=== PATIENT | female | born 1940 | race Caucasian/White ===

== ENCOUNTER 2017-12-28 15:43 | Emergency (ER) | payer MEDICARE ==
--- NOTE | 2017-12-28 16:07 | EKG ---
[address] [address] Test Date: 2017-12-28 Test Time: 16:02:57 Pat Name: JAYLENE CLEMENT Department: Room: Gender: F [employer]: : 1940 Requested By: KALLI MCCABE Order Number: [id number] Reading MD: Measurements Intervals [place] Rate: 98 P: NE: QRS: 48 QRSD: 76 T: -5 QT: 284 QTc: 364 Interpretive Statements IRREGULAR RHYTHM, NO P-WAVE FOUND NO SPECIFIC ECG ABNORMALITIES RI6.01 No previous ECG available for comparison
[2017-12-28] MEDS ORDERED: METOPROLOL TARTRATE 5 MG/5 ML VIAL. IV ONE (16:15)
--- NOTE | 2017-12-28 16:19 | PHYS DOC ---
Past History Past Medical History: A-Fib, CAD, Hypertension Smoking: Non-smoker Adult General Chief Complaint Chief Complaint: SHORTNESS OF BREATH HPI HPI 77-year-old female patient with history of atrial fibrillation on Plavix and aspirin and Eliquis history of coronary artery disease with a stent placement on October 2017 complaining of constant shortness of breath since yesterday with bilateral ankle swelling. Patient states she was working at her yard today and felt more shortness of breath without palpitation and chest pain. Patient comes and goes generalized weakness and dizziness without focal neuro deficit, fever and chills, nausea and vomiting, cough and congestion. Review of Systems Review of Systems Constitutional: Denies fever or chills [] Eyes: Denies change in visual acuity, redness, or eye pain [] HENT: Denies nasal congestion or sore throat [] Respiratory: Reports shortness of breath [] Cardiovascular: No additional information not addressed in HPI [] GI: Denies abdominal pain, nausea, vomiting, bloody stools or diarrhea [] : Denies dysuria or hematuria [] Musculoskeletal: Denies back pain or joint pain [] Integument: Denies rash or skin lesions [] Neurologic: Denies headache, focal weakness or sensory changes [] Endocrine: Denies polyuria or polydipsia [] All other systems were reviewed and found to be within normal limits, except as documented in this note. Current Medications Current Medications Current Medications Medications (Trade) Dose Ordered Sig/Cristiano Start Time Stop Time Status Last Admin Dose Admin Metoprolol Tartrate (Lopressor Vial) 5 mg 1X ONCE 12/28/17 16:15 12/28/17 16:16 UNV Physical Exam Physical Exam Constitutional: Well developed, well nourished, mild distress, non-toxic appearance. [] HENT: Normocephalic, atraumatic, bilateral external ears normal, oropharynx moist, no oral exudates, nose normal. [] Eyes: PERRLA, EOMI, conjunctiva normal, no discharge. [] Neck: Normal range of motion, no tenderness, supple, no stridor. [] Cardiovascular: Irregularly irregular heartbeat with tachycardia Lungs & Thorax: Bilateral breath sounds clear to auscultation [] Abdomen: Bowel sounds normal, soft, no tenderness, no masses, no pulsatile masses. [] Skin: Warm, dry, no erythema, no rash. [] Back: No tenderness, no CVA tenderness. [] Extremities: No tenderness, no cyanosis, no clubbing, ROM intact, 1+ bilateral ankle edema. [] Neurologic: Alert and oriented X 3, normal motor function, normal sensory function, no focal deficits noted. [] Psychologic: Affect normal, judgement normal, mood normal. [] EKG EKG EKG interpreted by me. EKG at 16 and O2 showed atrial fibrillation with rate of 98, otherwise nonspecific EKG abnormalities[] Radiology/Procedures Radiology/Procedures [] [address] [address] IMAGING REPORT Signed PATIENT: JAYLENE CLEMENT ACCOUNT: [id number] : 1940 LOCATION: ER AGE: 77 SEX: F EXAM STATUS: REG ER ORD. PHYSICIAN: KALLI MCCABE MD REASON: shortness of breath PROCEDURE: PORTABLE CHEST 1V Exam: AP portable chest History: Shortness of air. Comparison: None. Findings: Cardiac silhouette appears borderline in size given positioning. No pneumothorax is seen. There may be small bilateral pleural effusions. No large consolidation is appreciated. No convincing failure is seen. Impression: 1. Cardiac silhouette is borderline in size. 2. Question small bilateral pleural effusions. Electronically signed by: Anand Del Castillo MD (12/28/2017 4:52 PM) [facility] DICTATED AND SIGNED BY: ANAND DEL CASTILLO MD DATE: 12/28/17 9628 CC: KALLI MCCABE MD; PCP,NO ~ Course & Med Decision Making Course & Med Decision Making Pertinent Labs and Imaging studies reviewed. (See chart for details) Evaluation of patient in ER showed 77-year-old female patient with history of atrial flutter patient complaining of shortness of breath. Patient had atrial flutter patient with heart rate of 110s with stable blood pressure. Patient treated with 5 mg of IV metoprolol and heart rate decreased to 90s and patient felt better with her shortness of breath. Patient had a BNP of 6200. Patient treated with Lasix. Plan to admit the patient with diagnosis of atrial fibrillation with RVR and CHF. Dr. Gutierrez accepted admission at 1730. Dragon Disclaimer Dragon Disclaimer This electronic medical record was generated, in whole or in part, using a voice recognition dictation system. Departure Departure: Impression: Primary Impression: Atrial fibrillation with RVR Additional Impressions: CHF (congestive heart failure) Shortness of breath Disposition: ADMITTED INPATIENT (At 1730) Admitting Physician: Kelly Gutierrez Condition: IMPROVED Referrals: PCP,NO (PCP) Critical Care Time Critical care time was [50] minutes exclusive of procedures. Problem Qualifiers KALLI MCCABE MD December 28, 2017 16:19
[2017-12-28 16:20] LABS: BASO # 0.1 x10^3/uL (0.0-0.2); BASO % 1 % (0-3); EOS # 0.1 x10^3/uL (0.0-0.7); EOS % 2 % (0-3); HEMATOCRIT 34.6 % (36.0-47.0); HEMOGLOBIN 11.3 g/dL (12.0-15.5); LYMPH # 1.1 x10^3/uL (1.0-4.8); LYMPH % 20 % (24-48); MEAN CORPUSCULAR HEMOGLOBIN 28 pg (25-35); MEAN CORPUSCULAR HGB CONC 33 g/dL (31-37); MEAN CORPUSCULAR VOLUME 86 fL (79-100); MONO # 0.4 x10^3/uL (0.0-1.1); MONO % 6 % (0-9); NEUT # 4.1 x10^3uL (1.8-7.7); NEUT % 71 % (31-73); PLATELET COUNT 256 x10^3/uL (140-400); RED BLOOD COUNT 4.04 x10^6/uL (3.50-5.40); RED CELL DISTRIBUTION WIDTH 15.5 % (11.5-14.5); WHITE BLOOD COUNT 5.8 x10^3/uL (4.0-11.0)
[2017-12-28 16:44] LABS: ALBUMIN 3.7 g/dL (3.4-5.0); ALBUMIN/GLOBULIN RATIO 1.2 (1.0-1.7); GFR 54.1; MAGNESIUM 1.7 mg/dL (1.8-2.4); POTASSIUM 3.8 mmol/L (3.5-5.1); TOTAL BILIRUBIN 1.8 mg/dL (0.2-1.0); TOTAL PROTEIN 6.8 g/dL (6.4-8.2)
--- NOTE | 2017-12-28 16:55 | RAD ---
Exam: AP portable chest History: Shortness of air. Comparison: None. Findings: Cardiac silhouette appears borderline in size given positioning. No pneumothorax is seen. There may be small bilateral pleural effusions. No large consolidation is appreciated. No convincing failure is seen. Impression: 1. Cardiac silhouette is borderline in size. 2. Question small bilateral pleural effusions. Electronically signed by: Anand Dumas MD (12/28/2017 4:52 PM) [facility]
[2017-12-28] MEDS ORDERED: FUROSEMIDE 40 MG/4 ML VIAL IVP ONE (17:45)
[2017-12-28 18:31] VITALS: BP 156/93
[2017-12-28 18:40] LABS: BILIRUBIN,URINE NEG (NEG); CLARITY,URINE HAZY; COLOR,URINE YELLOW; GLUCOSE,URINE NEG (NEG)
[2017-12-28 18:41] LABS: NITRITE,URINE NEG (NEG); RBC,URINE OCC /HPF (0-2); UROBILINOGEN,URINE 2 mg/dL (0.2 mg/dL)
[2017-12-28 18:42] LABS: BACTERIA,URINE MOD /HPF (0-FEW); SQUAMOUS EPITHELIAL CELL,UR MOD /LPF; YEAST,URINE PRESENT /HPF
== END 2017-12-28 18:37 | disposition other institution (70) ==
LOC: ER 15:43
DX: I48.0 Paroxysmal atrial fibrillation (principal); I11.0 Hypertensive heart disease with heart failure; I50.9 Heart failure, unspecified; I25.10 Atherosclerotic heart disease of native coronary artery without angina pectoris; Z95.5 Presence of coronary angioplasty implant and graft; Z79.02 Long term (current) use of antithrombotics/antiplatelets
CPT/HCPCS: 36415; 71045; 80053; 81001; 82553; 83735; 83880; 84484; 85025; 85610; 85730; 87086; 93005; 96374; 96375; 99291; J1940; J3490

== ENCOUNTER → 2021-04-28 | Outpatient (CLI) | payer MEDICARE, OTHER ==
--- NOTE | 2021-04-30 13:26 | RAD ---
INDICATION: 81 years of age asymptomatic female patient presents for screening mammography. TECHNIQUE: Full field craniocaudal and mediolateral oblique images of both breasts were obtained usi ng digital technique with tomosynthesis and also analyzed with computer-aided detection software. COMPARISON: None available. Prior imaging performed at outside hospital not available at time of exam ination. BREAST COMPOSITION: Category B: There are scattered fibroglandular densities. FINDINGS: Benign calcifications are present. The parenchymal pattern appears stable. No suspicious masses, microcalcifications or architectural distortion is present to suggest malignanc y in either breast. The visualized axillae are unremarkable. IMPRESSION: No mammographic evidence of malignancy. RECOMMENDATION: Annual screening mammography is recommended, unless clinically indicated sooner based on symptoms or change in physical exam. BIRADS 2: BENIGN This study was interpreted with the benefit of Computerized Aided Detection (CAD). Patient information is entered into the reminder system with a target due date for the next screening mammogram. Mammography is the most sensitive method for finding small breast cancers, but it does not detect the m all and is not a substitute for careful clinical examination. A negative mammogram does not negate a clinically suspicious finding and should not result in delay in biopsying a clinically suspicious a bnormality. "Our facility is accredited by the [employer] Mammography Program." Electronically signed by: Manjeet Singh MD (04/30/2021 1:24 PM) [facility]
== END ==
LOC: MAMMO 10:20
PROVIDERS: ATTEND Family Medicine
DX: Z12.31 Encounter for screening mammogram for malignant neoplasm of breast (principal); R92.1 Mammographic calcification found on diagnostic imaging of breast
CPT/HCPCS: 77067